=== PATIENT | male | born 1990 | race Asian ===

== ENCOUNTER 2018-02-01 02:29 | Emergency (ER) | payer OTHER ==
[~2018-02-01] VITALS: Ht 175.3 cm; Wt 75.6 kg
[2018-02-01 02:35] VITALS: TEMP 36.3; Ht 175.3 cm; Wt 75.6 kg
[2018-02-01] MEDS ORDERED: LORAZEPAM 0.5 MG TAB SL STA ×2 (02:55→03:56)
[2018-02-01 03:10] LABS: BASO % 0.2 %; BASO ABS # 0.02 K/uL (0-0.2); EOS % 0.5 %; EOS ABS # 0.04 K/uL (0-0.5); HEMATOCRIT 43.6 % (42-52); HEMOGLOBIN 15.5 g/dL (14.0-18.0); IG# 0.05 K/uL (0.00-0.02); LYMPH % 26.7 %; LYMPH ABS # 2.31 K/uL (1.2-3.4); MEAN CELL VOLUME 83.5 fL (80-100); MEAN CORPUSCULAR HEMOGLOBIN 29.7 pg (25-34); MEAN CORPUSCULAR HGB CONC 35.6 g/dl (32-36); MEAN PLATELET VOLUME 9.9 fL (7.4-10.4); MONO % 6.1 %; MONO ABS # 0.53 K/uL (0.11-0.59); NEUT % 65.9 %; NEUT ABS # 5.71 K/uL (1.4-6.5); PLATELET COUNT 219 K/uL (130-400); RED CELL DISTRIBUTION WIDTH CV 13.1 % (11.5-14.5); RED CELL DISTRIBUTION WIDTH SD 39.2 fL (36.4-46.3); WHITE BLOOD COUNT 8.66 K/uL (4.8-10.8)
--- NOTE | 2018-02-01 03:11 | EMERGENCY ROOM VISIT NOTE ---
History First contact with patient: 02:40 Chief Complaint: ANXIETY Stated Complaint: RAPID HEARTBEAT History of Present Illness The patient is a 27 year old male who presents to the Emergency Room with complaints of a rapid heartbeat. The patient states the symptoms occurred approximately 1 hour prior to arrival. He states that the episode lasted for approximately 10 minutes. He reports he developed a feeling that his heart was beating too fast and not working properly as well as a pressure in his chest. He rates the overall discomfort a 5/10. The patient states that the symptoms have improved at this time, although he is still feeling slightly anxious. The patient admits to increased stress recently. He states that his thesis is due in 2 days. He also reports that he had a very hard conversation with his father today, and states that he "told him things that he should have told him for the past 25 years." The patient also admits that he drinks 3 cups of coffee today, when he typically only drinks 1 cup of coffee per day. The patient reports a history of a heart murmur as a child. He states that he had an echocardiogram due to tachycardia with exercise and it was normal. He denies any shortness of breath or lightheadedness. He denies recent illness. Review of Systems A complete 10 point review of systems was reviewed with the patient with pertinent positives and negatives as per history of present illness. All else were negative. Past Medical/Surgical History Medical Problems: (1) No significant active problems Social History Smoking Status: Never Smoker Alcohol Use: none Drug Use: none Housing Status: lives with significant other Occupation Status: [employer] student Current/Historical Medications No Active Prescriptions or Reported Meds Physical Exam Vital Signs Date Time Temp Pulse Resp B/P (MAP) Pulse Ox O2 Delivery O2 Flow Rate FiO2 02/01/18 04:05 74 13 102/76 97 02/01/18 03:40 74 17 100 02/01/18 03:07 83 16 123/70 100 Room Air 02/01/18 03:02 88 02/01/18 02:35 36.3 80 22 133/70 99 Room Air Physical Exam VITALS: Vitals are noted on the nurse's note and reviewed by myself. Vital signs stable. GENERAL: This is a 27-year-old male, in no acute distress but mildly anxious appearing, well-developed well-nourished. SKIN: The skin was without rashes. EARS: External auditory canals clear, tympanic membranes pearly kamara without erythema or effusion bilaterally. EYES: Pupils equal round and reactive to light and accommodation. MOUTH: Mucous membranes moist. Tonsils are not enlarged. Pharynx without erythema or exudate. NECK: Supple without nuchal rigidity. No lymphadenopathy. HEART: Regular rate and rhythm without murmurs gallops or rubs. LUNGS: Clear to auscultation bilaterally without wheezes, rales or rhonchi. NEURO: Patient was alert and oriented to person place and time. Patient is pleasant and cooperative with examiner. Medical Decision & Procedures Laboratory Results 02/01/18 03:00 Red Blood Count 5.22, Mean Corpuscular Volume 83.5, Mean Corpuscular Hemoglobin 29.7, Mean Corpuscular Hemoglobin Concent 35.6, Mean Platelet Volume 9.9, Neutrophils (%) (Auto) 65.9, Lymphocytes (%) (Auto) 26.7, Monocytes (%) (Auto) 6.1, Eosinophils (%) (Auto) 0.5, Basophils (%) (Auto) 0.2, Neutrophils # (Auto) 5.71, Lymphocytes # (Auto) 2.31, Monocytes # (Auto) 0.53, Eosinophils # (Auto) 0.04, Basophils # (Auto) 0.02 02/01/18 03:00 Test 02/01/18 03:00 White Blood Count 8.66 K/uL (4.8-10.8) Red Blood Count 5.22 M/uL (4.7-6.1) Hemoglobin 15.5 g/dL (14.0-18.0) Hematocrit 43.6 % (42-52) Mean Corpuscular Volume 83.5 fL (80-100) Mean Corpuscular Hemoglobin 29.7 pg (25-34) Mean Corpuscular Hemoglobin Concent 35.6 g/dl (32-36) Platelet Count 219 K/uL (130-400) Mean Platelet Volume 9.9 fL (7.4-10.4) Neutrophils (%) (Auto) 65.9 % Lymphocytes (%) (Auto) 26.7 % Monocytes (%) (Auto) 6.1 % Eosinophils (%) (Auto) 0.5 % Basophils (%) (Auto) 0.2 % Neutrophils # (Auto) 5.71 K/uL (1.4-6.5) Lymphocytes # (Auto) 2.31 K/uL (1.2-3.4) Monocytes # (Auto) 0.53 K/uL (0.11-0.59) Eosinophils # (Auto) 0.04 K/uL (0-0.5) Basophils # (Auto) 0.02 K/uL (0-0.2) RDW Standard Deviation 39.2 fL (36.4-46.3) RDW Coefficient of Variation 13.1 % (11.5-14.5) Immature Granulocyte % (Auto) 0.6 % Immature Granulocyte # (Auto) 0.05 K/uL (0.00-0.02) Anion Gap 10.0 mmol/L (3-11) Est Creatinine Clear Calc Drug Dose 124.2 ml/min Estimated GFR () 135.3 Estimated GFR (Non- 116.7 BUN/Creatinine Ratio 13.1 (10-20) Calcium Level 8.9 mg/dl (8.5-10.1) Troponin I < 0.015 ng/ml (0-0.045) Thyroid Stimulating Hormone (TSH) 1.960 uIu/ml (0.300-4.500) Medications Administered Medications (Trade) Dose Ordered Sig/Annamarie Route Start Time Stop Time Status Last Admin Dose Admin Lorazepam (Ativan Tab) 0.5 mg NOW STAT SL 02/01/18 02:55 02/01/18 02:57 DC 02/01/18 03:03 0.5 MG Lorazepam (Ativan Tab) 0.5 mg NOW STAT SL 02/01/18 03:56 02/01/18 03:57 DC 02/01/18 04:01 0.5 MG ECG Per My Interpretation Indication: palpitations Rate (beats per minute): 87 Rhythm: normal sinus Findings: no acute ischemic change, no ectopy, other (incomplete RBBB) Comparison ECG Date: no prior available ED Course The patient was evaluated as above. Labs were drawn. Patient was medicated with 0.5 mg Ativan sublingually. Patient was reevaluated and findings were discussed. The patient felt much better and requested one additional dose of Ativan prior to discharge. He was given 0.5 mg Ativan. Discharge instructions were reviewed with the patient. The patient verbalized understanding of my assessment and treatment plan and was discharged home in good condition. Medical Decision Differential diagnosis includes acute coronary syndrome, pulmonary embolism, pneumothorax, pericarditis, myocarditis, endocarditis, anxiety, musculoskeletal pain, GERD, costochondritis, pneumonia, among others. The patient is a 27-year-old male who presents today complaining of chest discomfort. Labs revealed no leukocytosis, anemia or concerning electrolyte abnormality. Mildly hypokalemic. Troponin is elevated. TSH within normal limits. EKG shows an incomplete right bundle branch block, no tachycardia or ectopy. The patient admits he is very anxious and has a lot of stressors at this time. He felt much better after treatment with Ativan. He will follow-up with [facility] in 1-2 days for recheck. Based on the patient's presentation and work up, I feel the patient is stable for outpatient treatment. The patient was educated to return to the emergency department for any worsening of their current condition or new/concerning symptoms. He will follow up with [facility]. Medication Reconcilliation Current Medication List: was personally reviewed by me Blood Pressure Screening Patient's blood pressure: Normal blood pressure Impression Primary Impression: Acute anxiety Departure Information Dispostion Home / Self-Care Condition GOOD Prescriptions No Active Prescriptions or Reported Meds Referrals [facility] (PCP) Patient Instructions My [facility] Additional Instructions Laboratory results and Imaging Studies have ruled out any acute cardiac or pulmonary cause of your chest pain. Contact [facility] in the morning to schedule a follow up appointment. Return to the Emergency Department if your current symptoms worsen despite treatment course outlined above, or if you develop any of the following symptoms : worsening chest pain, associated jaw/arm pain, nausea, dizziness, shortness of breath, bloody cough, or fainting.
[2018-02-01 03:30] LABS: BLOOD UREA NITROGEN 12 mg/dl (7-18); CALCIUM 8.9 mg/dl (8.5-10.1); CARBON DIOXIDE 23 mmol/L (21-32); CREATININE 0.91 mg/dl (0.60-1.40); GLUCOSE 104 mg/dl (70-99); POTASSIUM 3.1 mmol/L (3.5-5.1); SODIUM 139 mmol/L (136-145)
[2018-02-01 04:05] VITALS: BP 102/76; PULSE 74; O2SAT 97
== END 2018-02-01 04:05 | disposition home or self-care (01) ==
LOC: C.EDB 02:32
DX: F41.9 Anxiety disorder, unspecified (principal); I45.10 Unspecified right bundle-branch block